=== PATIENT | female | born 1990 | race Native Hawaiian/Other Pacific Islander ===

== ENCOUNTER 2022-04-30 10:49 | Outpatient (REF) | payer BC, SELFPAY ==
--- NOTE | 2022-04-30 08:45 | PAPFT_PTH ---
PATIENT: Cande Spaulding LOC: [facility] U#:[id number] AGE/SX: 32/F ROOM: RE04/30/[address]: Zeinab Yates NP : 1990 BED: DIS: 04/30/2022 SPEC #: [id number] RECD: 04/30/22 12:39 STATUS: KATE REQ #: [id number] MONSE: 04/30/22 08:[address]: Zeinab Yates NP DEPT: [facility] Cytology RECD BY: Mildred Puga ENTERED: 04/30/22 12:40 SP TYPE: PAPFT OTHR DR: Orly Ojeda, DO Tissues: 1 - CX/ENDOCX FOR PAP SMEARS Procedures: PAP THIN PREP/UVM Screening HPV DNA PROBE Comments: [id number]
== END 2022-04-30 10:50 | disposition home or self-care (01) ==
LOC: LBN 10:49
PROVIDERS: PCP Student in an Organized Health Care Education/Training Program; Visit Provider Nurse Practitioner Women's Health
DX: Z12.4 Encounter for screening for malignant neoplasm of cervix (principal); Z11.51 Encounter for screening for human papillomavirus (HPV)
CPT/HCPCS: 88142; 87624

== ENCOUNTER 2022-05-11 19:58 | Outpatient (CLI) | payer BC, SELFPAY ==
[2022-05-11 15:54] LABS: HCT 41.2 % (36.0-46.0); HGB 14.3 g/dL (11.2-15.7); MCH 30.2 pg (27.0-33.0); MCHC 34.7 % (32.0-36.0); MCV 87 fL (80-95); MPV 7.8 fL (8.0-11.0); Platelet Count 315 10^3/uL (130-400); RBC 4.73 10^6/uL (3.93-5.22); RDW-SD 41.5 fL; WBC 9.45 10^3/uL (4.4-10.8)
[2022-05-11 17:02] LABS: ALT 20 U/L (14-59); AST 15 U/L (15-37); Albumin 3.9 g/dL (3.4-5.0); Alkaline Phosphatase 57 U/L (46-116); BUN 11 mg/dL (7-18); Bilirubin, Total 0.3 mg/dL (0.2-1.0); CREATININE 0.8 mg/dL (0.55-1.02); Calcium 9.1 mg/dL (8.5-10.1); Calculated LDL 118 mg/dL (<100); Chloride 102 mmol/L (98-107); Cholesterol 188 mg/dL (<200); Estimated GFR 100.96 (mL/min/1.73m2); Glucose 115 mg/dL (74-106); HCG Quant, Pregnancy 16 mIU/mL (1-3); HDL Cholesterol 53 mg/dL (40-60); Potassium 3.7 mmol/L (3.5-5.1); Sodium 136 mmol/L (136-145); TSH (W/Ref FT4) 1.44 uIU/mL (0.36-3.74); Total Protein 8.3 g/dL (6.4-8.2); Triglyceride 87 mg/dL (<150)
== END 2022-05-11 19:59 | disposition home or self-care (01) ==
LOC: LBO 19:59
PROVIDERS: PCP Student in an Organized Health Care Education/Training Program; Visit Provider Advanced Practice Midwife
DX: R00.0 Tachycardia, unspecified; E86.0 Dehydration; Z86.79 Personal history of other diseases of the circulatory system; Z91.89 Other specified personal risk factors, not elsewhere classified; Z13.220 Encounter for screening for lipoid disorders; N92.6 Irregular menstruation, unspecified; O20.0 Threatened abortion
CPT/HCPCS: 36415; 80053; 80061; 85027; 84443; 84702

== ENCOUNTER 2022-09-04 13:21 | Outpatient (REF) | payer BC, SELFPAY ==
[2022-09-05 13:24] LABS: Chlamydia Result Negative (Negative); GC Result Negative (Negative)
== END 2022-09-04 13:22 | disposition home or self-care (01) ==
LOC: LBN 13:21
PROVIDERS: PCP Student in an Organized Health Care Education/Training Program; Visit Provider Advanced Practice Midwife
DX: O26.891 Other specified pregnancy related conditions, first trimester (principal); N89.8 Other specified noninflammatory disorders of vagina; R30.0 Dysuria; Z3A.10 10 weeks gestation of pregnancy
CPT/HCPCS: 87491; 87591; 87086; 87480; 87510; 87660

== ENCOUNTER 2022-09-06 22:10 | Emergency (ER) | payer BC, SELFPAY ==
[2022-09-06 22:29] VITALS: BP 151/96; PULSE 91; RESP 16; TEMP 37.2; O2SAT 99
[2022-09-06 22:58] LABS: Bilirubin Negative (Negative); Blood Moderate (Negative); Clarity Clear (Clear); Glucose Negative (Negative); Ketones Trace mg/dL (Negative); Leukocyte Esterase Small (Negative); Nitrite Negative (Negative); Urobilinogen 0.2 EU/dL (Up TO 0.2)
--- NOTE | 2022-09-06 23:00 | ED.GENADUL_ITS ---
Discharge Plan Disposition Patient Disposition: Home Condition: Stable Discharge Details Clinical Impression: Vaginal bleeding in patient at less than 20 weeks gestation, Hypertension during in first trimester Primary Care Provider: Orly Ojeda ED Provider: Juliana Dill Home Meds and New Rx's Prescriptions: Continued albuterol sulfate [ProAir HFA] 90 mcg/actuation HFA aerosol inhaler 2 puff inhalation Q6H PRN (Reason: shortness of breath or wheezing) Qty: 8.5 0RF Rx Instructions: Substitutions or generic OK; dispense as best filled per insurance... PNV,calcium 57-qfzp-hkvle acid 27 mg iron- 1 mg tablet 1 tab PO DAILY Qty: 90 8RF Rx Instructions: give with food (meal/snack) Zyrtec 10 mg capsule 10 mg PO DAILY PRN acetaminophen [Tylenol Extra Strength] 500 mg tablet 500 mg PO Q6H PRN No Action labetalol 100 mg tablet 100 mg PO BID Qty: 60 0RF Discharge Instructions Instructions: Hypertension (ED), First Trimester (ED) Additional Instructions: Your hormone test and ultrasound today are very reassuring. Your blood pressure was elevated in the emergency department today. It is recommended that you call women's wellness in the morning to schedule an appointment for recheck of your blood pressure tomorrow. Drink plenty of fluids and get plenty of rest. Return immediately to the emergency department if you develop any worsening or new concerning symptoms. Discharge Data Discharge Date/Time-TO BE ENTERED AT DEPARTURE: 09/07/22 00:42 Discharge Physician: Juliana Dill Medical Decision Making 32-year-old female G3, L1 at approximate 11 weeks presents for concern for passing tissue in the toilet this evening. Denies any new abdominal pain or vaginal bleeding. Her blood pressure is elevated on arrival at 151/96. She appears comfortable and nontoxic. Her abdomen is soft and nontender. Bedside transabdominal ultrasound reveals an active live fetus with heart rate of approximately 158. Screening labs obtained on arrival and note normal white blood cell count. She does have a bicarb of 18 and anion gap that is minimally elevated at 12.2 but remainder of her labs are unremarkable. [place] [address]. Her urinalysis does note moderate blood and trace protein but no findings consistent with a urinary tract infection and urine culture not sent. Case discussed with head loft worker Sherron Teran. As patient has reassuring labs and a reassuring bedside ultrasound, she does not think there is an indication for repeat beta quantitative test in 48 hours. Recommends follow-up with women's wellness in the office tomorrow for recheck of her blood pressure. Her blood pressure prior to discharge is much improved at 134/87. Usual and customary return precautions given prior to discharge. Medical Records Medical records reviewed: Yes I reviewed the patient's medical records. Lab Data Lab results reviewed: Yes I reviewed the patient's lab results. Labs: Laboratory Tests Range/Units 09/06/22 09/06/22 09/06/22 02:50 23:00 23:00 WBC (4.4-10.8) 10^3/uL 10.08 RBC (3.93-5.22) 10^6/uL 4.43 Hgb (11.2-15.7) g/dL 13.4 Hct (36.0-46.0) % 39.0 MCV (80-95) fL 88 MCH (27.0-33.0) pg 30.2 MCHC (32.0-36.0) % 34.4 RDW (11.7-14.6) % 13.0 Plt Count (130-400) 10^3/uL 289 MPV (8.0-11.0) fL 7.8 L Immature Gran % 0.6 Neutrophils % 61.9 Lymphocytes % 29.4 Monocytes % 4.5 Eosinophils % 3.2 Basophils % 0.4 Nucleated RBC % (0.0-0.3) % 0.0 Absolute Neutrophils (1.2-6.7) 10^3/uL 6.25 Absolute Lymphocytes (1.2-3.4) 10^3/uL 2.96 Absolute Monocytes (0.1-0.8) 10^3/uL 0.45 Absolute Eosinophils (0.0-0.7) 10^3/uL 0.32 Absolute Basophils (0.0-0.2) 10^3/uL 0.04 Sodium (136-145) mmol/L 134 L Potassium (3.5-5.1) mmol/L 3.7 Chloride (98-107) mmol/L 103 Carbon Dioxide (21.0-32.0) mmol/L 18.8 L Anion Gap (3-11) mmol/L 12.2 H BUN (7-18) mg/dL 8 Creatinine (0.55-1.02) mg/dL 0.7 Est GFR (CKD-EPI 2020) (mL/min/1.73m2) 118.51 Glucose (74-106) mg/dL 97 Calcium (8.5-10.1) mg/dL 9.2 Total Bilirubin (0.2-1.0) mg/dL 0.3 AST (15-37) U/L 21 ALT (14-59) U/L 16 Alkaline Phosphatase (46-116) U/L 48 Total Protein (6.4-8.2) g/dL 7.5 Albumin (3.4-5.0) g/dL 3.5 Lipase (73-393) U/L 27 Beta HCG, Quant (1-3) mIU/mL 54357 H Urine Color (Yellow) Yellow Urine Clarity (Clear) Clear Urine pH (5-8) 6.0 Ur Specific [place] (1.005-1.025) 1.020 Urine Protein (Negative) mg/dL Trace H Urine Ketones (Negative) mg/dL Trace H Urine Blood (Negative) Moderate H Urine Nitrite (Negative) Negative Urine Bilirubin (Negative) Negative Urine Urobilinogen (Up TO 0.2) EU/dL 0.2 Ur Leukocyte Esterase (Negative) Small H Urine RBC (0-2) HPF 5-10 H Urine WBC (0-5) HPF 3-5 Ur Epithelial Cells (Negative) HPF Many Urine Crystals (Negative) HPF Negative Urine Bacteria (Negative) HPF Few Urine Casts (Negative) LPF Negative Urine Mucus (Negative) Negative Urine Other (Negative) Few Renal Ur Culture Indicated? No Urine Glucose (Negative) mg/dL Negative Patient ABO/Rh Range/Units 09/06/22 23:00 WBC (4.4-10.8) 10^3/uL RBC (3.93-5.22) 10^6/uL Hgb (11.2-15.7) g/dL Hct (36.0-46.0) % MCV (80-95) fL MCH (27.0-33.0) pg MCHC (32.0-36.0) % RDW (11.7-14.6) % Plt Count (130-400) 10^3/uL MPV (8.0-11.0) fL Immature Gran % Neutrophils % Lymphocytes % Monocytes % Eosinophils % Basophils % Nucleated RBC % (0.0-0.3) % Absolute Neutrophils (1.2-6.7) 10^3/uL Absolute Lymphocytes (1.2-3.4) 10^3/uL Absolute Monocytes (0.1-0.8) 10^3/uL Absolute Eosinophils (0.0-0.7) 10^3/uL Absolute Basophils (0.0-0.2) 10^3/uL Sodium (136-145) mmol/L Potassium (3.5-5.1) mmol/L Chloride (98-107) mmol/L Carbon Dioxide (21.0-32.0) mmol/L Anion Gap (3-11) mmol/L BUN (7-18) mg/dL Creatinine (0.55-1.02) mg/dL Est GFR (CKD-EPI 2020) (mL/min/1.73m2) Glucose (74-106) mg/dL Calcium (8.5-10.1) mg/dL Total Bilirubin (0.2-1.0) mg/dL AST (15-37) U/L ALT (14-59) U/L Alkaline Phosphatase (46-116) U/L Total Protein (6.4-8.2) g/dL Albumin (3.4-5.0) g/dL Lipase (73-393) U/L Beta HCG, Quant (1-3) mIU/mL Urine Color (Yellow) Urine Clarity (Clear) Urine pH (5-8) Ur Specific [place] (1.005-1.025) Urine Protein (Negative) mg/dL Urine Ketones (Negative) mg/dL Urine Blood (Negative) Urine Nitrite (Negative) Urine Bilirubin (Negative) Urine Urobilinogen (Up TO 0.2) EU/dL Ur Leukocyte Esterase (Negative) Urine RBC (0-2) HPF Urine WBC (0-5) HPF Ur Epithelial Cells (Negative) HPF Urine Crystals (Negative) HPF Urine Bacteria (Negative) HPF Urine Casts (Negative) LPF Urine Mucus (Negative) Urine Other (Negative) Ur Culture Indicated? Urine Glucose (Negative) mg/dL Patient ABO/Rh O Positive HPI General Mode of arrival: ambulatory . Date/Time Provider Initiated Documentation: 09/06/22 22:10 . Limitations to Documentation: no limitations . Information obtained by: patient . HPI Narrative: Patient is a 32-year-old female A1 L1 at approximately 11 weeks presents for concern for passing tissue in the toilet tonight. Patient states she was urinating when she stood up and wiped and noticed an approximate 2 x 2 centimeter piece of red and pink tissue in the toilet. Patient states there was no bleeding or tissue on the toilet paper. She states she has occasional abdominal cramping and lower back pain but states this is no worse than usual. She denies any other vaginal bleeding, fever, nausea, vomiting. Patient states she has a history of a miscarriage at approximately 5 weeks in March 2022. Related Data Home Medications Medication Instructions Recorded Confirmed albuterol sulfate 90 mcg/actuation 2 puff inhalation Q6H PRN 10/23/21 09/07/22 aerosol inhaler (ProAir HFA) shortness of breath or wheezing #8.5 grams acetaminophen 500 mg tablet 500 mg PO Q6H PRN 04/09/22 09/07/22 (Tylenol Extra Strength) cetirizine 10 mg capsule (Zyrtec) 10 mg PO DAILY PRN 04/09/22 09/07/22 vitamin with calcium 1 tab PO DAILY #90 tabs 07/19/22 09/07/22 no.72-iron 27 mg-folic acid 1 mg tablet labetalol 100 mg tablet 100 mg PO BID #60 tabs 09/07/22 09/07/22 Previous Rx's Medication Instructions Recorded albuterol sulfate 90 mcg/actuation 2 puff inhalation Q6H PRN 10/23/21 aerosol inhaler (ProAir HFA) shortness of breath or wheezing #8.5 grams vitamin with calcium 1 tab PO DAILY #90 tabs 07/19/22 no.72-iron 27 mg-folic acid 1 mg tablet labetalol 100 mg tablet 100 mg PO BID #60 tabs 09/07/22 Allergies Allergy/AdvReac Type Severity Reaction Status Date / Time Penicillins Allergy Verified 09/07/22 16:33 Sulfa (Sulfonamide Allergy Verified 09/07/22 16:33 Antibiotics) General Stated 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: 3 Review of Systems All systems reviewed & are unremarkable except as noted in HPI and below Constitutional Constitutional: Reports as per HPI, Denies chills and Denies fever(s) Eyes Eyes: Denies blurry vision ENT Ears, Nose, Mouth, and Throat: Denies dizziness, Denies sore throat and Denies throat swelling Cardiovascular Cardiovascular: Denies chest pain and Denies dyspnea Respiratory Respiratory: Denies cough and Denies dyspnea Gastrointestinal Gastrointestinal: Denies abdominal pain, Denies diarrhea and Denies vomiting Genitourinary Genitourinary: Denies hematuria and Denies dysuria Musculoskeletal Musculoskeletal: Denies back pain and Denies numbness Integumentary/Breasts Skin/Breast: Denies lesions and Denies rash Neurologic Neurologic: Denies dizziness, Denies localized weakness and Denies numbness Allergic/Immunologic Allergic/Immunologic: Denies throat swelling PFSH All Active Problems (Updated 09/07/22 @ 00:22 by Juliana Dill DO) Vaginal bleeding in patient at less than 20 weeks gestation (Acute) Hypertension during in first trimester (Acute) Chronic hypertension (Acute) Dysuria during in first trimester (Acute) History of gestational diabetes mellitus (Acute) Body mass index [BMI] 37.0-37.9, adult (Acute) (Acute) Asthma (Chronic) Mild, Hx Albuterol use as child, with cold weather. New to cold weather, considering PFT/Pulm PRN. Medical History (Updated 09/07/22 @ 00:22 by Juliana Dill DO) At risk for diabetes mellitus 2' gestational diabetes, 2019 (Vag delivery February 2020) Family history of ovarian cancer Maternal Grandmother. Mo NEG (and has had regular mammograms). Personal Hx bc pills. [ ] consider earlier baseline mammo History of gestational hypertension Hx of Healthy , but high BP noted (no Rx) and gestational DM (+). Vag delivery (induced), March 07, 2020. Miscarriage, threatened, early Missed menses Missed menses Tachycardia Family History Maternal Grandmother Cancer Ovarian Mother Hypertension Social History Smoking/Tobacco Use Status: Never Second Hand Exposure: No Smoking risk assessment performed?: Yes Alcohol Intake: current Alcohol Intake frequency: a few times a month Drug use: Never Substance use type: does not use Adopted: No Caregiver/Support person: No Foster care: No Household members: spouse, family and children Housing: house Number of Children: 1 number of grandchildren: 0 Communication Needs: None Education Level: college Details: Bachelor's Degree Do you need help understanding health information?: Rarely current occupation: [employer] Pets and animals: Yes (2) Pets and animals: dog(s) Sexually active: Yes Do you think of yourself as: straight/heterosexual Current gender identity: female What is your relationship status?: How often do you talk on the phone with friends or family?: three or more times per week How often do you get together with friends or relatives?: once per week Do you belong to any clubs or organized social groups?: no Panel score (0-1 are the most socially isolated patients): 2 What type of physical activity do you participate in: walking Duration: 15-30 minutes/day Frequency: 3-4 times per week Martha/Confucianist: None Special martha needs: No Seatbelt use: always Helmet use: Yes Helmet use: always Drive intox or ride w/intox transfer driver: No Do you feel safe at home: Yes Do you feel safe in your relationship?: Yes Female Reproductive History Menstrual control method: none History History 3 Para 1 Hx # Term Pregnancies 1 Multiple births 0 Hx # Pregnancies 0 Ectopic pregnancies 0 AB induced 0 Hx Number of Living Children 1 AB spontaneous 1 Past Pregnancies Del. Date GA/Weeks # Preg Succ Route Wgt Sex Labor Lgth Anesth esia Location [facility] 03/07/22 39 No Yes vaginal 3175.147 g Male 12 h [facility] Delivery Date: 03/07/22 Last Updated by: Sherron Teran CNM gHTN and GDM diet controlled, IOL at 39 wks, K[place]ash Exam Const General: cooperative, healthy appearing and no acute distress Orientation: alert, awake and oriented x3 HENMT Head: normal to inspection Face and sinus: normal facial exam Eyes General: appearance normal, both eyes and all related structures Pupils: PERRL EOM: EOM intact bilaterally Neck Neck: normal visual inspection and No submandibular swelling Lymphatic: no lymphadenopathy noted Chest Chest: normal inspection of the chest and no tenderness Resp Effort & Inspection: normal respiratory effort and able to speak in complete sentences Auscultation: clear to auscultation bilaterally Cardio Rate: regular rate Rhythm: regular rhythm GI Inspection: normal to inspection and obesity Palpation: soft, not firm, not rigid and nontender Auscultation: hypoactive bowel sounds Skin General skin exam: no rashes or lesions noted Neuro General: patient alert, patient awake and patient oriented x3 Cognition: normal cognition Speech: speech normal Motor: muscle tone normal throughout Sensory Exam: no sensory deficits noted Extrem General: normal to inspection, full ROM, capillary refill normal, no calf tenderness bilaterally and no edema Psych Appearance: grossly normal Mental Status: mental status grossly normal Speech and Movement: speech and movement normal Affect: normal affect Course Vital Signs Vital signs: Vital Signs Temperature 99.0 F 09/06/22 22:29 Pulse 91 H 09/06/22 22:29 Respiratory Rate 16 09/06/22 22:29 Blood Pressure 151/96 H 09/06/22 22:29 Pulse Oximetry 99 09/06/22 22:29 Temperature 99.0 F 09/06/22 22:29 Temperature Source Temporal Artery Scan 09/06/22 22:29 Pulse 91 H 09/06/22 22:29 Respiratory Rate 16 09/06/22 22:29 Respiratory Effort 09/06/22 22:34 Blood Pressure 151/96 H 09/06/22 22:29 Pulse Oximetry 99 09/06/22 22:29 Oxygen Delivery Method Room Air 09/06/22 22:29 Oxygen Flow Rate 0 09/06/22 22:29 Lab/Test Results Lab/Test Results: Laboratory Tests Range/Units 09/06/22 02:50 Urine Color (Yellow) Yellow Urine Clarity (Clear) Clear Urine pH (5-8) 6.0 Ur Specific [place] (1.005-1.025) 1.020 Urine Protein (Negative) mg/dL Trace H Urine Ketones (Negative) mg/dL Trace H Urine Blood (Negative) Moderate H Urine Nitrite (Negative) Negative Urine Bilirubin (Negative) Negative Urine Urobilinogen (Up TO 0.2) EU/dL 0.2 Ur Leukocyte Esterase (Negative) Small H Urine Glucose (Negative) mg/dL Negative
[2022-09-06 23:06] LABS: Abs Immature Grans 0.06 10^3/uL (0.0-0.06); Absolute Basophil Count 0.04 10^3/uL (0.0-0.2); Absolute Eosinophil Count 0.32 10^3/uL (0.0-0.7); Absolute Lymphocyte Count 2.96 10^3/uL (1.2-3.4); Absolute Monocyte Count 0.45 10^3/uL (0.1-0.8); Absolute Neutrophil Count 6.25 10^3/uL (1.2-6.7); Basophils % 0.4; Eosinophils % 3.2; HGB 13.4 g/dL (11.2-15.7); Immature Grans % 0.6; Lymphocytes % 29.4; MCH 30.2 pg (27.0-33.0); MCHC 34.4 % (32.0-36.0); MCV 88 fL (80-95); MPV 7.8 fL (8.0-11.0); Monocytes % 4.5; Neutrophils % 61.9; Platelet Count 289 10^3/uL (130-400); RBC 4.43 10^6/uL (3.93-5.22); RDW-SD 42.1 fL; WBC 10.08 10^3/uL (4.4-10.8)
[2022-09-06 23:07] LABS: Epithelial Cells Many HPF (Negative); Other Cells Few Renal (Negative)
[2022-09-06 23:08] LABS: Bacteria Few HPF (Negative); Casts Negative LPF (Negative); Crystals Negative HPF (Negative); Mucus Negative (Negative)
[2022-09-06 23:27] LABS: Lipase 27 U/L (73-393)
[2022-09-06 23:52] LABS: ALT 16 U/L (14-59); AST 21 U/L (15-37); Albumin 3.5 g/dL (3.4-5.0); Alkaline Phosphatase 48 U/L (46-116); Anion Gap 12.2 mmol/L (3-11); BUN 8 mg/dL (7-18); Bilirubin, Total 0.3 mg/dL (0.2-1.0); CO2 18.8 mmol/L (21.0-32.0); CREATININE 0.7 mg/dL (0.55-1.02); Calcium 9.2 mg/dL (8.5-10.1); Chloride 103 mmol/L (98-107); Estimated GFR 118.51 (mL/min/1.73m2); Glucose 97 mg/dL (74-106); Potassium 3.7 mmol/L (3.5-5.1); Sodium 134 mmol/L (136-145); Total Protein 7.5 g/dL (6.4-8.2)
[2022-09-07 00:40] VITALS: BP 134/87; PULSE 80; RESP 20; TEMP 36.7; O2SAT 100
[2022-09-07 07:35] LABS: C & S Indicated? No/Sq. Contamination
== END 2022-09-07 00:42 | disposition home or self-care (01) ==
PROVIDERS: Emergency Provider Physician Assistant; PCP Student in an Organized Health Care Education/Training Program
DX: O20.9 Hemorrhage in early pregnancy, unspecified (principal); O13.1 Gestational [pregnancy-induced] hypertension without significant proteinuria, first trimester; Z3A.11 11 weeks gestation of pregnancy; O28.8 Other abnormal findings on antenatal screening of mother
CPT/HCPCS: 80053; 83690; 86900; 86901; 99283; 81003; 81015; 84702; 85025

== ENCOUNTER 2022-09-10 02:50 | Outpatient (CLI) | payer BC, SELFPAY ==
[2022-09-10 10:24] LABS: Panorama Kit Sent via Fed Ex
[2022-09-10 10:58] LABS: Glucose,1 Hr (Glucola) 140 mg/dL (80-140)
[2022-09-10 11:20] LABS: ALT 19 U/L (14-59); AST 16 U/L (15-37); Albumin 3.3 g/dL (3.4-5.0); Alkaline Phosphatase 42 U/L (46-116); BUN 5 mg/dL (7-18); Bilirubin, Total 0.3 mg/dL (0.2-1.0); CREATININE 0.7 mg/dL (0.55-1.02); Calcium 8.9 mg/dL (8.5-10.1); Chloride 104 mmol/L (98-107); Estimated GFR 118.51 (mL/min/1.73m2); Glucose 140 mg/dL (74-106); LDH 118 U/L (81-234); Potassium 3.3 mmol/L (3.5-5.1); Sodium 137 mmol/L (136-145); TSH (W/Ref FT4) 0.89 uIU/mL (0.36-3.74); Total Protein 7.5 g/dL (6.4-8.2); Uric Acid 3.6 mg/dL (2.6-6.0)
[2022-09-11 09:25] LABS: Hepatitis B Surface Ag Negative (Negative)
[2022-09-11 10:04] LABS: HIV-1/2 Ag & Ab Screen Negative (Negative)
[2022-09-11 10:19] LABS: Hepatitis C Ab w Rflx HCV PCR Negative (Negative)
[2022-09-11 11:19] LABS: Rubella IgG Ab (UVM) Positive (See Note); Varicella IgG Antibody Positive (See Note)
[2022-09-12 14:24] LABS: Syphilis IgG w/Reflex Nonreactive (Nonreactive)
[2022-09-15 01:22] LABS: Specimen WB Whole Blood
[2022-09-26 16:01] LABS: Result Summary NEGATIVE; Specimen WB Whole Blood
== END 2022-09-10 02:51 | disposition home or self-care (01) ==
LOC: LBO 02:50
PROVIDERS: Advanced Practice Midwife; PCP Student in an Organized Health Care Education/Training Program; Visit Provider Advanced Practice Midwife
DX: Z34.91 Encounter for supervision of normal pregnancy, unspecified, first trimester
CPT/HCPCS: 36415; 80053; 81220; 81222; 81329; 82950; 86787; 86803; 86850; 86900; 86901; 87340; 87389; 83615; 84443; 84550; 86762; 86780

== ENCOUNTER 2022-09-10 11:31 | Outpatient (REF) | payer BC, SELFPAY ==
[2022-09-10 10:31] LABS: Creatinine,24hr Ur 1.69 g/24hr (0.60-1.80); Creatinine,Urine 65.01 mg/dL; PROTEIN < 6.0 mg/dL (0.0-11.9); Total Volume 2600 ml
[2022-09-10 13:20] LABS: *AMPHETAMINES SCREEN URINE Negative (Negative); *BARBITURATES SCREEN URINE Negative (Negative); *BENZODIAZEPINES SCREEN URINE Negative (Negative); Cannabinoids THC Negative (Negative); Cocaine Screen,Urine Negative (Negative); METHADONE URINE SCREEN Negative (Negative); OPIATES URINE SCREEN Negative (Negative)
[2022-09-10 13:21] LABS: Tricyclic Antidepressants Negative (Negative)
[2022-09-14 11:36] LABS: Buprenorphine Negative ng/mL (Cutoff: 5.0); Norbuprenorphine Negative ng/mL (Cutoff: 2.5)
== END 2022-09-10 11:32 | disposition home or self-care (01) ==
LOC: LBN 11:31
PROVIDERS: Advanced Practice Midwife; PCP Student in an Organized Health Care Education/Training Program; Visit Provider Advanced Practice Midwife
DX: O13.1 Gestational [pregnancy-induced] hypertension without significant proteinuria, first trimester (principal); Z3A.11 11 weeks gestation of pregnancy
CPT/HCPCS: 80307; 80348; 81050; 82570; 84155; 87086

== ENCOUNTER 2022-09-21 02:04 | Outpatient (CLI) | payer BC, SELFPAY ==
[2022-09-21 10:30] LABS: Glucose 1 Hour 176 mg/dL
[2022-09-21 12:36] LABS: Glucose 3 Hour 105 mg/dL
== END 2022-09-21 02:05 | disposition home or self-care (01) ==
LOC: LBO 02:05
PROVIDERS: PCP Student in an Organized Health Care Education/Training Program; Visit Provider Advanced Practice Midwife
DX: Z34.91 Encounter for supervision of normal pregnancy, unspecified, first trimester (principal); Z86.32 Personal history of gestational diabetes
CPT/HCPCS: 82951

== ENCOUNTER 2022-09-27 11:48 | Outpatient (CLI) | payer BC, SELFPAY ==
[2022-09-27 13:45] LABS: Panorama Kit Sent via Fed Ex
== END 2022-09-27 11:49 | disposition home or self-care (01) ==
LOC: LBO 11:55
PROVIDERS: PCP Student in an Organized Health Care Education/Training Program; Visit Provider Advanced Practice Midwife
DX: Z34.81 Encounter for supervision of other normal pregnancy, first trimester (principal)
CPT/HCPCS: 36415

== ENCOUNTER 2022-11-27 16:16 | Emergency (ER) | payer BC, SELFPAY ==
--- NOTE | 2022-11-27 16:15 | RT.EKG_ITS ---
APPROVED REPORT Exam: Resting ECG Reason for Exam: dizziness Patient Location: E HR:81 bpm ECG Measurements Heart Rate 81 AXIS MO 139 P 10 QRSd 84 QRS 16 QT 369 T -8 QTc 429 Conclusion Sinus rhythm...normal P axis, V-rate 60- 99
[2022-11-27 16:24] VITALS: BP 135/87; PULSE 82; RESP 18; O2SAT 98
[2022-11-27 16:34] VITALS: RESP 18
--- NOTE | 2022-11-27 17:15 | ED.GENADUL_ITS ---
Discharge Plan Disposition Patient Disposition: Home Condition: Good Discharge Details Clinical Impression: Benign paroxysmal positional vertigo Primary Care Provider: Orly Ojeda ED Provider: Kylee Mcgee Home Meds and New Rx's Prescriptions: Continued albuterol sulfate [ProAir HFA] 90 mcg/actuation HFA aerosol inhaler 2 puff inhalation Q6H PRN (Reason: shortness of breath or wheezing) Qty: 8.5 0RF Rx Instructions: Substitutions or generic OK; dispense as best filled per insurance... PNV,calcium [id number] acid 27 mg iron- 1 mg tablet 1 tab PO DAILY Qty: 90 8RF Rx Instructions: give with food (meal/snack) Zyrtec 10 mg capsule 10 mg PO DAILY PRN acetaminophen [Tylenol Extra Strength] 500 mg tablet 500 mg PO Q6H PRN aspirin 81 mg tablet,delayed release (DR/EC) 81 mg PO DAILY Qty: 90 3RF Rx Instructions: 1 tab daily alternating with two tabs every other day labetalol 100 mg tablet See Rx Instructions .ROUTE .COMPLEX Qty: 60 0RF Dose Instruction: TAKE ONE TABLET BY MOUTH TWICE A DAY Rx Instructions: TAKE ONE TABLET BY MOUTH TWICE A DAY Discharge Instructions Instructions: Benign Paroxysmal Positional Vertigo (ED) Additional Instructions: Return home and rest. If the vertigo happens again then lie down, close your eyes, and rest for a few minutes. If it is persisting with associated vomiting please return to the emergency department for additional treatment. Return also for any hearing loss, ringing in the ears, neurologic deficits such as weakness or change in vision or speech, etc. check your blood pressure in the morning and call your OB to check in if it is still elevated. Your discharge blood pressure is 137/94. Discharge Data Discharge Date/Time-TO BE ENTERED AT DEPARTURE: 11/27/22 19:23 Medical Decision Making Patient had a short episode of vertigo which has completely resolved. I suspect this is likely benign paroxysmal positional vertigo. She had no hearing loss or tinnitus with this. She has no headache or other focal neurologic complaints. She said she was extremely anxious after the vertigo started and I suspect this interfered with her ability to properly express herself. She could not answer her for a very short period of time although was mouthing the answers and said that she knew what she wanted to say. This lasted a minute or 2 before all resolved. I discussed the case with Dr. Floyd from neurology. She did not think the patient was having a stroke and felt that she was safe to go home. I discussed this extensively with the patient and her mom and answered their questions about vertigo and what to do if it returns. Patient's blood pressure was mildly elevated in the ED and she promises to call her OB in the morning if it is not back to baseline. She states that it has been in the 120s when she takes it at home. ECG Data Attestation: I personally reviewed and interpreted this ECG (s) as follows: Interpretation: EEG group EKG: Normal sinus rhythm at 80, no ST-T changes, some artifact HPI General Date/Time Provider Initiated Documentation: 11/27/22 16:29 . HPI Narrative: This 32-year-old 3 para 1 at 22 weeks gestation female presents with a chief complaint of vertigo. Patient states that she works from home and was lying on the bed with her computer. She says she felt a little bit lightheaded and the room was spinning slightly. She stood up and this got much worse. She says her balance was a little bit off and she held onto the wall as she tried to walk to her . She says she has been very anxious during this because they lost their last child. She was feeling anxious and was initially unable to answer her 's questions so he called 911. She says she knew what she wanted to say and he said she was mouthing words but he could not hear her. After a minute or 2 the patient was able to answer questions slowly and appropriately and by the time EMS arrived she was back to baseline. There was no slurred speech. She has no headache or other focal neurologic deficits or complaints. She has had some hypertension with this and is on labetalol. She denies any head or neck injury recently or in the past. The patient is asymptomatic with no complaints at this time. Related Data Home Medications Medication Instructions Recorded Confirmed albuterol sulfate 90 mcg/actuation 2 puff inhalation Q6H PRN 10/23/21 11/28/22 aerosol inhaler (ProAir HFA) shortness of breath or wheezing #8.5 grams acetaminophen 500 mg tablet 500 mg PO Q6H PRN 08/29/22 04/19/23 (Tylenol Extra Strength) cetirizine 10 mg capsule (Zyrtec) 10 mg PO DAILY PRN 04/09/22 11/28/22 vitamin with calcium 1 tab PO DAILY #90 tabs 07/19/22 11/28/22 no.72-iron 27 mg-folic acid 1 mg tablet aspirin 81 mg tablet,delayed 81 mg PO DAILY #90 tabs 09/10/22 11/28/22 release labetalol 100 mg tablet See Rx Instructions .Route 11/06/22 11/28/22 .COMPLEX #60 tabs Previous Rx's Medication Instructions Recorded albuterol sulfate 90 mcg/actuation 2 puff inhalation Q6H PRN 10/23/21 aerosol inhaler (ProAir HFA) shortness of breath or wheezing #8.5 grams vitamin with calcium 1 tab PO DAILY #90 tabs 07/19/22 no.72-iron 27 mg-folic acid 1 mg tablet aspirin 81 mg tablet,delayed 81 mg PO DAILY #90 tabs 09/10/22 release labetalol 100 mg tablet See Rx Instructions .Route 11/06/22 .COMPLEX #60 tabs Allergies Allergy/AdvReac Type Severity Reaction Status Date / Time Sulfa (Sulfonamide Allergy Verified 11/28/22 14:14 Antibiotics) Penicillins AdvReac Mild Hives Verified 11/28/22 14:14 General Stated Complaint: Dizzy/Sync JOSEPHINE: 3 Review of Systems Constitutional Constitutional: Denies chills, Denies fever(s), Denies headache(s) and Denies weakness Eyes Eyes: Denies diplopia and Reports other (no redness) ENT Ears, Nose, Mouth, and Throat: Reports vertigo, Denies otalgia, Denies headache(s), Denies nasal congestion, Denies nasal discharge, Denies neck pain and Denies sore throat Cardiovascular Cardiovascular: Denies chest pain, Denies palpitations and Denies dyspnea Respiratory Respiratory: Denies cough and Denies dyspnea Gastrointestinal Gastrointestinal: Denies abdominal pain, Denies diarrhea, Denies nausea and Denies vomiting Genitourinary Genitourinary: Denies dysuria Musculoskeletal Musculoskeletal: Denies myalgias, Denies muscle weakness, Denies neck pain, Denies numbness and Reports other (edema) Integumentary/Breasts Skin/Breast: Denies change in pigmentation and Denies rash Neurologic Neurologic: Denies confusion, Reports vertigo, Denies headache(s), Denies numbness and Denies weakness Psychiatric Psychiatric: Denies confusion Endocrine Endocrine: Denies palpitations PFSH All Active Problems (Updated 11/27/22 @ 19:15 by Kylee Mcgee MD) Benign paroxysmal positional vertigo (Acute) Adverse reaction to penicillin (Acute) History of depression, currently (Acute) Chronic hypertension (Acute) History of gestational diabetes mellitus (Acute) Body mass index [BMI] 37.0-37.9, adult (Acute) (Acute) Asthma (Chronic) Mild, Hx Albuterol use as child, with cold weather. New to cold weather, considering PFT/Pulm PRN. Medical History At risk for diabetes mellitus 2' gestational diabetes, 2019 (Vag delivery February 2020) Dysuria during in first trimester Family history of ovarian cancer Maternal Grandmother. Mo NEG (and has had regular mammograms). Personal Hx bc pills. [ ] consider earlier baseline mammo History of gestational hypertension Hx of Healthy , but high BP noted (no Rx) and gestational DM (+). Vag delivery (induced), March 07, 2020. Hypertension during in first trimester Miscarriage, threatened, early Missed menses Missed menses Tachycardia Vaginal bleeding in patient at less than 20 weeks gestation Family History Maternal Grandmother Cancer Ovarian Mother Hypertension Social History Smoking/Tobacco Use Status: Never Second Hand Exposure: No Smoking risk assessment performed?: Yes Alcohol Intake: current Alcohol Intake frequency: a few times a month Drug use: Never Substance use type: does not use Details: does not drink ETOH during per patient Adopted: No Caregiver/Support person: No Foster care: No Household members: spouse, family and children Housing: house Number of Children: 1 number of grandchildren: 0 Communication Needs: None Education Level: college Details: Bachelor's Degree Do you need help understanding health information?: Rarely 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 [employer] Pets and animals: Yes (2) Pets and animals: dog(s) Sexually active: Yes Do you think of yourself as: straight/heterosexual Current gender identity: female What is your relationship status?: How often do you talk on the phone with friends or family?: three or more times per week How often do you get together with friends or relatives?: once per week Do you belong to any clubs or organized social groups?: no Panel score (0-1 are the most socially isolated patients): 2 What type of physical activity do you participate in: walking Duration: 15-30 minutes/day Frequency: 3-4 times per week Martha/Mu-Ism: None Special marhta needs: No Seatbelt use: always Helmet use: Yes Helmet use: always Drive intox or ride w/intox truck 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 Date GA/Weeks # Preg Succ Route Wgt Sex Labor Lgth Anesth esia Location [facility] 03/07/22 39 No Yes vaginal 3175.147 g Male [facility] h [facility] Delivery Date: 03/07/22 Last Updated by: Sherron Teran CNM gHTN and GDM diet controlled, IOL at 39 wks, Kailash Exam Const General: no acute distress, well developed, well groomed and not in acute distress Nutritional Appearance: well nourished Orientation: alert and oriented x3 HENMT Head: normocephalic and atraumatic Ears: external ears normal Mouth: oropharynx normal and moist mucous membranes Throat: posterior oropharynx normal Eyes Conjunctivae: conjunctivae normal Neck Neck: full ROM and supple Chest Chest: normal inspection of the chest Resp Effort & Inspection: normal respiratory effort Auscultation: clear to auscultation bilaterally Cardio Rate: regular rate Rhythm: regular rhythm Heart Sounds: no murmurs and no rubs GI Inspection: normal to inspection Palpation: soft, nontender and other (non distended) Auscultation: normal bowel sounds Skin General skin exam: no rashes or lesions noted and other (pink, warm, dry) Neuro General: patient alert, patient awake, patient oriented x3, moves all extremities, no focal motor deficits, CN's II-XI intact bilaterally, normal sensation to monofilament (Sensation intact throughout) and not confused Speech: speech normal Gait: normal gait Motor: muscle tone normal throughout, strength 5/5 throughout and other (RAMON) Sensory Exam: no sensory deficits noted Coordination: [id number] test normal and Romberg test normal Extrem General: normal to inspection, full ROM and pedal edema present Psych Mental Status: mental status grossly normal Speech and Movement: speech and movement normal Affect: normal affect Attitude: cooperative Thought Process: normal Insight: insight good Judgment: judgment good Course Vital Signs Vital signs: Vital Signs Pulse 82 11/27/22 16:24 Respiratory Rate 18 11/27/22 16:24 Blood Pressure 135/87 11/27/22 16:24 Pulse Oximetry 98 11/27/22 16:24 Pulse 82 11/27/22 16:24 Respiratory Rate 18 11/27/22 16:34 Respiratory Effort Normal 11/27/22 16:34 Respiratory Depth Normal 11/27/22 16:34 Respiratory Pattern Normal 11/27/22 16:34 Blood Pressure 135/87 11/27/22 16:24 Blood Pressure Position Sitting 11/27/22 16:24 Pulse Oximetry 98 11/27/22 16:24 Oxygen Delivery Method Room Air 11/27/22 16:24 Oxygen Flow Rate 0 11/27/22 16:24
[2022-11-27 19:16] VITALS: BP 137/94
[2022-11-27 19:22] VITALS: BP 137/94; PULSE 85; O2SAT 98
== END 2022-11-27 19:23 | disposition home or self-care (01) ==
PROVIDERS: Emergency Provider Emergency Medicine; PCP Student in an Organized Health Care Education/Training Program
DX: H81.10 Benign paroxysmal vertigo, unspecified ear (principal); O99.892 Other specified diseases and conditions complicating childbirth; O10.912 Unspecified pre-existing hypertension complicating pregnancy, second trimester; Z3A.22 22 weeks gestation of pregnancy; O09.292 Supervision of pregnancy with other poor reproductive or obstetric history, second trimester
CPT/HCPCS: 93005; 99283; 93010

== ENCOUNTER 2023-01-02 02:45 | Outpatient (CLI) | payer BC, SELFPAY ==
--- NOTE | 2023-01-02 06:30 | DI.US_ITS ---
Exam(s) US OB RASHID WEIGHT EXAM: US OB RASHID WEIGHT CLINICAL HISTORY: growth and RASHID due to HTN on medication,I10. TECHNIQUE: Transabdominal obstetrical ultrasound was performed. COMPARISON: US US OB 2-3 TRIMESTER from 11/09/2022 . FINDINGS: There is again noted a single viable intrauterine gestation with cardiac activity identified-13 1 bpm The fetus is presently in cephalic position . Amniotic fluid: There is a normal amount of amniotic fluid with an RASHID of 12.69cm. Placental location: The placenta is anterior grade 1,with no evidence of placenta previa. Dating parameters place this at approximately 28 weeks gestational age, implying DANIELLE of Mar ust 2022. BPD measures 28 weeks and 0 days HC measures 27 weeks and 4 days AC measures 28 weeks and 4 days FL measures 27 weeks and 4 days Estimated weight is 1178 gm-pounds 10 ounces Fetus is at the 47th percentile on the Hadlock scale. IMPRESSION:: Viable intrauterine gestation, as described above. DATA REPOSITORY:
== END 2023-01-02 03:05 ==
PROVIDERS: PCP Student in an Organized Health Care Education/Training Program; Visit Provider Advanced Practice Midwife
DX: I10 Essential (primary) hypertension (principal); Z34.90 Encounter for supervision of normal pregnancy, unspecified, unspecified trimester
CPT/HCPCS: 76816

== ENCOUNTER 2023-01-10 04:37 | Outpatient (CLI) | payer BC, SELFPAY ==
[2023-01-10 08:18] LABS: HCT 34.8 % (36.0-46.0); HGB 11.9 g/dL (11.2-15.7); MCH 30.8 pg (27.0-33.0); MCHC 34.2 % (32.0-36.0); MCV 90 fL (80-95); MPV 7.7 fL (8.0-11.0); Platelet Count 274 10^3/uL (130-400); RBC 3.86 10^6/uL (3.93-5.22); RDW 14.3 % (11.7-14.6); RDW-SD 46.6 fL; WBC 9.56 10^3/uL (4.4-10.8)
[2023-01-10 10:08] LABS: Glucose 1 Hour 149 mg/dL
[2023-01-10 12:12] LABS: Glucose 3 Hour 72 mg/dL
== END 2023-01-10 04:38 | disposition home or self-care (01) ==
LOC: LBO 04:37
PROVIDERS: Advanced Practice Midwife; PCP Student in an Organized Health Care Education/Training Program; Visit Provider Advanced Practice Midwife
DX: Z34.93 Encounter for supervision of normal pregnancy, unspecified, third trimester (principal); Z86.32 Personal history of gestational diabetes
CPT/HCPCS: 36415; 85027; 82951

== ENCOUNTER 2023-02-01 00:09 | Outpatient (CLI) | payer BC, SELFPAY ==
--- NOTE | 2023-02-01 07:15 | DI.US_ITS ---
Exam(s) US OB RASHID WEIGHT EXAM: US OB RASHID WEIGHT CLINICAL HISTORY: growth due to HTN on medication in , I10, Z34.90. TECHNIQUE: Transabdominal obstetrical ultrasound performed. COMPARISON: US US OB RASHID WEIGHT from 01/02/2023 FINDINGS: Number of fetuses: 1 position: CEPHALIC Placental location: ANTERIOR No evidence of previa. BIOMETRIC DATA: BPD: 7.87 cm, 31 weeks 4 days HC: 29.54 cm, 32 weeks 5 days AC: 28.85 cm, 32 weeks 6 days FL: 6.19 cm, 32 weeks 1 day EFW: 1986.7 g, 4 lb 6 oz, 50.7 % Composite Age: 32 weeks 2 days. There has been normal interval growth. DANIELLE: 03/27/2023 Heart Rate: 141 bpm Amniotic fluid index: 11.33 cm. Visually, amount of fluid is within normal limits. IMPRESSION: 1. Single live intrauterine gestation as above. 2. Estimated weight is 1987gms. This is the 51st percentile. 3. Amniotic fluid index is 11.3 cm. Visually within normal limits. DATA REPOSITORY:
== END 2023-02-01 00:29 ==
LOC: DI 00:09
PROVIDERS: PCP Student in an Organized Health Care Education/Training Program; Visit Provider Advanced Practice Midwife
DX: I10 Essential (primary) hypertension (principal); Z34.93 Encounter for supervision of normal pregnancy, unspecified, third trimester
CPT/HCPCS: 76816

== ENCOUNTER 2023-02-08 03:38 | Outpatient (CLI) | payer BC, SELFPAY ==
[2023-02-08 10:19] VITALS: BP 129/85; PULSE 94; TEMP 36.9
--- NOTE | 2023-02-08 11:02 | W.OBNST ---
Date of service: 02/08/23 Time of Service: 11:03 NST Evaluation Reason for NST Reasons for Nonstress Test: GESTATIONAL HYPERTENSION Gestational Age Gestational Age in Weeks and Days: 33 Weeks and 1Days Vital Signs Blood Pressure: 129/85 Pulse: 94 Temperature: 98.4 F NST Information Date on Monitor: 02/08/23 Time on Monitor: 10:20 Date off Monitor: 02/08/23 NST Interventions: PO Hydration NST Evaluation Patient States Movement: Present Variability: Moderate 6-25 bpm Accelerations: 15x15 Decelerations: None NST Results: Reactive Note Ultrasound Done: N/A. NST Note NST Reviewed and Verified by: Paula Tamayo
[2023-02-08 11:03] VITALS: BP 129/85; PULSE 94; TEMP 36.9
== END 2023-02-08 10:55 | disposition home or self-care (01) ==
LOC: BCD 03:40 → OBS 10:18
PROVIDERS: PCP Student in an Organized Health Care Education/Training Program; Visit Provider Advanced Practice Midwife
DX: O10.013 Pre-existing essential hypertension complicating pregnancy, third trimester (principal); Z3A.33 33 weeks gestation of pregnancy
CPT/HCPCS: 59025

== ENCOUNTER 2023-02-15 07:42 | Outpatient (CLI) | payer BC, SELFPAY ==
[2023-02-15 12:06] VITALS: BP 119/74; PULSE 87; TEMP 36.3
--- NOTE | 2023-02-15 12:42 | W.OBNST ---
Date of service: 02/15/23 Time of Service: 11:55 NST Evaluation Reason for NST Reasons for Nonstress Test: GESTATIONAL HYPERTENSION Gestational Age Gestational Age in Weeks and Days: 34 Weeks and 1Days Test and Monitor Explained Test/Monitor Explained: Test Explained, Monitor Explained and Patient Verbalized Understanding Vital Signs Blood Pressure: 119/74 Pulse: 87 Temperature: 97.3 F NST Information Date on Monitor: 02/15/23 Time on Monitor: 11:53 Date off Monitor: 02/15/23 Time off Monitor: 12:25 Total Time on Monitor: 32 NST Interventions: PO Hydration NST Evaluation Patient States Movement: Present FHR Baseline: 135 Variability: Moderate 6-25 bpm Accelerations: 15x15 and 10x10 Decelerations: None NST Results: Reactive Note Ultrasound Done: N/A. NST Note Note: NST is reactive and reassuring. Will return weekly. BASHIR NST Reviewed and Verified by: Sherron Teran
[2023-02-15 12:43] VITALS: BP 119/74; PULSE 87; TEMP 36.3
== END 2023-02-15 12:32 | disposition home or self-care (01) ==
LOC: BCD 07:43 → OBS 12:03
PROVIDERS: PCP Student in an Organized Health Care Education/Training Program; Visit Provider Advanced Practice Midwife
DX: O10.013 Pre-existing essential hypertension complicating pregnancy, third trimester (principal); Z3A.34 34 weeks gestation of pregnancy
CPT/HCPCS: 59025

== ENCOUNTER 2023-02-22 05:24 | Outpatient (CLI) | payer BC, SELFPAY ==
[2023-02-22 11:12] VITALS: BP 118/75; PULSE 94; TEMP 36.1
--- NOTE | 2023-02-22 12:19 | W.OBNST ---
Date of service: 02/22/23 Time of Service: 12:19 NST Evaluation Reason for NST Reasons for Nonstress Test: GESTATIONAL HYPERTENSION Gestational Age Gestational Age in Weeks and Days: 35 Weeks and 1Days Test and Monitor Explained Test/Monitor Explained: Test Explained, Monitor Explained and Patient Verbalized Understanding Vital Signs Blood Pressure: 118/75 Pulse: 94 Temperature: 97.0 F NST Information Date on Monitor: 02/22/23 Time on Monitor: 10:50 Date off Monitor: 02/22/23 Time off Monitor: 11:17 Total Time on Monitor: 27 NST Interventions: Reposition Patient NST Evaluation Patient States Movement: Present FHR Baseline: 135 Variability: Moderate 6-25 bpm Accelerations: 15x15 Decelerations: None NST Results: Reactive Note Ultrasound Done: N/A. NST Note Note: Weekly NST for hypertension. Weekly NST scheduled and IOL at 39 weeks. NST Reviewed and Verified by: Sherron Chilel
[2023-02-22 12:20] VITALS: BP 118/75; PULSE 94; TEMP 36.1
== END 2023-02-22 11:45 | disposition home or self-care (01) ==
LOC: BCD 05:35 → OBS 11:07
PROVIDERS: PCP Student in an Organized Health Care Education/Training Program; Visit Provider Advanced Practice Midwife
DX: O10.013 Pre-existing essential hypertension complicating pregnancy, third trimester (principal); Z3A.35 35 weeks gestation of pregnancy
CPT/HCPCS: 59025

== ENCOUNTER 2023-02-28 07:24 | Outpatient (CLI) | payer BC, SELFPAY ==
[2023-02-28 12:59] VITALS: BP 124/87; PULSE 109; TEMP 36.5
[2023-02-28 13:04] LABS: HCT 34.6 % (36.0-46.0); MCH 30.9 pg (27.0-33.0); MCHC 34.7 % (32.0-36.0); MCV 89 fL (80-95); MPV 7.8 fL (8.0-11.0); Platelet Count 253 10^3/uL (130-400); RBC 3.88 10^6/uL (3.93-5.22); RDW-SD 45.1 fL; WBC 9.35 10^3/uL (4.4-10.8)
--- NOTE | 2023-02-28 13:15 | W.OBNST ---
Date of service: 02/28/23 Time of Service: 13:15 NST Evaluation Reason for NST Reasons for Nonstress Test: GESTATIONAL HYPERTENSION Gestational Age Gestational Age in Weeks and Days: 36 Weeks and 0Days Test and Monitor Explained Test/Monitor Explained: Test Explained, Monitor Explained and Patient Verbalized Understanding Vital Signs Blood Pressure: 124/87 Pulse: 109 Temperature: 97.7 F Urine Results Urine Protein: Negative Urine Ketones: Negative Urine Glucose: Negative Urine Blood: Negative NST Information Date on Monitor: 02/28/23 Time on Monitor: 12:04 Date off Monitor: 02/28/23 Time off Monitor: 12:43 Total Time on Monitor: 39 NST Interventions: Other Contraction Frequency: Occasional NST Evaluation Patient States Movement: Present FHR Baseline: 135 Variability: Moderate 6-25 bpm Accelerations: 15x15 Decelerations: None NST Results: Reactive Note Ultrasound Done: N/A. NST Note Note: Weekly NST's, IOL on 03/21/23 NST Reviewed and Verified by: Paula Tamayo
[2023-02-28 13:16] VITALS: BP 124/87; PULSE 109; TEMP 36.5
[2023-02-28 13:52] LABS: *AMPHETAMINES SCREEN URINE Negative (Negative); *BARBITURATES SCREEN URINE Negative (Negative); *BENZODIAZEPINES SCREEN URINE Negative (Negative); Cannabinoids THC Negative (Negative); Cocaine Screen,Urine Negative (Negative); METHADONE URINE SCREEN Negative (Negative); OPIATES URINE SCREEN Negative (Negative)
[2023-02-28 13:53] LABS: Tricyclic Antidepressants Negative (Negative)
== END 2023-02-28 13:02 | disposition home or self-care (01) ==
LOC: BCD 07:27 → OBS 12:10
PROVIDERS: PCP Student in an Organized Health Care Education/Training Program; Visit Provider Advanced Practice Midwife
DX: O10.013 Pre-existing essential hypertension complicating pregnancy, third trimester (principal); Z3A.36 36 weeks gestation of pregnancy
CPT/HCPCS: 36415; 80307; 85027; 59025; 87081

== ENCOUNTER 2023-03-06 02:54 | Outpatient (CLI) | payer BC, SELFPAY ==
--- NOTE | 2023-03-06 06:00 | DI.US_ITS ---
Exam(s) US OB RASHID WEIGHT EXAM: US OB RASHID WEIGHT CLINICAL HISTORY: growth due to HTN on med in ,I10,z34.90. TECHNIQUE: Transabdominal obstetrical ultrasound performed. COMPARISON: US US OB RASHID WEIGHT from 02/01/2023 FINDINGS: Number of fetuses: 1 position: Cephalic Placental location: Grade 1 anterior placenta. No evidence of previa. BIOMETRIC DATA: BPD: 87 mm, 37 weeks 1 day HC: 337 mm, 38 weeks 5 days AC: 121 mm, 39 weeks 2 days FL: 73 mm, 37 weeks 3 days EFW: 3451 g, 88th percentile, Composite Age: 37 weeks 5 days DANIELLE: 03/22/2023 Heart Rate: 137 Amniotic fluid index: 8.1. Visually, amount of fluid is within normal limits. IMPRESSION: 1. Single live intrauterine gestation as above. 2. Estimated weight is 3451gms. This is the 88th percentile. 3. Amniotic fluid index is 8.1 cm. Visually within normal limits. DATA REPOSITORY:
== END 2023-03-06 03:14 ==
LOC: DI 02:54
PROVIDERS: PCP Student in an Organized Health Care Education/Training Program; Visit Provider Advanced Practice Midwife
DX: I10 Essential (primary) hypertension (principal); Z34.93 Encounter for supervision of normal pregnancy, unspecified, third trimester
CPT/HCPCS: 76816

== ENCOUNTER 2023-03-06 07:36 | Outpatient (CLI) | payer BC, SELFPAY ==
[2023-03-06 09:16] VITALS: BP 131/83; PULSE 92; TEMP 36.6
--- NOTE | 2023-03-06 10:34 | W.OBNST ---
Date of service: 03/06/23 Time of Service: 10:34 NST Evaluation Reason for NST Reasons for Nonstress Test: GDM-DIET CONTROLLED Gestational Age Gestational Age in Weeks and Days: 36 Weeks and 6Days Test and Monitor Explained Test/Monitor Explained: Test Explained, Monitor Explained and Patient Verbalized Understanding Vital Signs Blood Pressure: 131/83 Pulse: 92 Temperature: 97.9 F Urine Results Urine Protein: Negative Urine Ketones: Negative Urine Glucose: Negative Urine Blood: Negative NST Information Date on Monitor: 03/06/23 Time on Monitor: 08:28 Date off Monitor: 03/06/23 Time off Monitor: 09:04 Total Time on Monitor: 36 NST Interventions: Notify Provider and Other Contraction Frequency: Occasional NST Evaluation Patient States Movement: Present FHR Baseline: 135 Variability: Moderate 6-25 bpm Accelerations: 15x15 Decelerations: None NST Results: Reactive Note Ultrasound Done: N/A. NST Note Note: Cande is here for weekly NST for chronic hypertension. Reactive NST. BP 131/83 Return to office in 2 days for visit NST Reviewed and Verified by: Sherron Chilel
[2023-03-06 10:35] VITALS: BP 131/83; PULSE 92; TEMP 36.6
== END 2023-03-06 09:00 | disposition home or self-care (01) ==
LOC: BCD 07:36 → OBS 08:38
PROVIDERS: PCP Student in an Organized Health Care Education/Training Program; Visit Provider Advanced Practice Midwife
DX: O24.410 Gestational diabetes mellitus in pregnancy, diet controlled (principal); Z3A.36 36 weeks gestation of pregnancy
CPT/HCPCS: 59025

== ENCOUNTER 2023-03-08 12:02 | Outpatient (CLI) | payer BC, SELFPAY ==
[2023-03-08 12:09] VITALS: BP 116/81; PULSE 90; TEMP 36.7; O2SAT 90
[2023-03-08 12:27] VITALS: BP 112/76; PULSE 90
--- NOTE | 2023-03-08 13:42 | W.OBNST ---
Date of service: 03/08/23 Time of Service: 12:35 NST Evaluation Reason for NST Reasons for Nonstress Test: GESTATIONAL HYPERTENSION Gestational Age Gestational Age in Weeks and Days: 37 Weeks and 1Days Test and Monitor Explained Test/Monitor Explained: Test Explained and Monitor Explained Vital Signs Blood Pressure: 116/81 Pulse: 90 Temperature: 98.1 F NST Information Date on Monitor: 03/08/23 Time on Monitor: 12:06 Date off Monitor: 03/08/23 Time off Monitor: 12:37 Total Time on Monitor: 31 NST Interventions: PO Hydration NST Evaluation Patient States Movement: Present FHR Baseline: 125 Variability: Moderate 6-25 bpm Accelerations: 15x15 Decelerations: None NST Results: Reactive Note Ultrasound Done: N/A. NST Note Note: NST is reactive and reassuring. BP WNL NST Reviewed and Verified by: Sherron Teran
[2023-03-08 13:43] VITALS: BP 116/81; PULSE 90; TEMP 36.7
== END 2023-03-08 12:42 | disposition home or self-care (01) ==
LOC: BCD 12:03 → OBS 12:08
PROVIDERS: PCP Student in an Organized Health Care Education/Training Program; Visit Provider Advanced Practice Midwife
DX: O10.013 Pre-existing essential hypertension complicating pregnancy, third trimester (principal); Z3A.37 37 weeks gestation of pregnancy
CPT/HCPCS: 59025

== ENCOUNTER 2023-03-15 07:26 | Outpatient (CLI) | payer BC, SELFPAY ==
[2023-03-15 12:19] VITALS: BP 126/84; PULSE 87; TEMP 36.7
[2023-03-15 12:49] VITALS: BP 126/84; PULSE 87; TEMP 36.7
--- NOTE | 2023-03-15 12:56 | W.OBNST ---
Date of service: 03/15/23 Time of Service: 12:56 NST Evaluation Reason for NST Reasons for Nonstress Test: GESTATIONAL HYPERTENSION Gestational Age Gestational Age in Weeks and Days: 38 Weeks and 1Days Test and Monitor Explained Test/Monitor Explained: Test Explained, Monitor Explained and Patient Verbalized Understanding Vital Signs Blood Pressure: 126/84 Pulse: 87 Temperature: 98.1 F Urine Results Urine Protein: Negative Urine Ketones: Negative Urine Glucose: Negative Urine Blood: Negative NST Information Date on Monitor: 03/15/23 Time on Monitor: 12:03 Date off Monitor: 03/15/23 Time off Monitor: 12:24 Total Time on Monitor: 21 NST Interventions: PO Hydration NST Evaluation Patient States Movement: Present FHR Baseline: 125 Variability: Moderate 6-25 bpm Accelerations: 15x15 Decelerations: None NST Results: Reactive Note Ultrasound Done: N/A. NST Note Note: NST for chronic hypertension. Recative NST. IOL scheduled for 03/21 and procedure reviewed. NST Reviewed and Verified by: Sherron Chilel
[2023-03-15 12:57] VITALS: BP 126/84; PULSE 87; TEMP 36.7
== END 2023-03-15 12:35 | disposition home or self-care (01) ==
LOC: BCD 07:26 → OBS 11:04
PROVIDERS: PCP Student in an Organized Health Care Education/Training Program; Visit Provider Advanced Practice Midwife
DX: O10.013 Pre-existing essential hypertension complicating pregnancy, third trimester (principal); Z3A.38 38 weeks gestation of pregnancy
CPT/HCPCS: 59025

== ENCOUNTER 2023-03-21 08:39 | Outpatient (CLI) | payer BC, SELFPAY ==
[2023-03-21 09:31] VITALS: BP 123/84; PULSE 84; TEMP 36.4
--- NOTE | 2023-03-21 09:56 | W.OBNST ---
Date of service: 03/21/23 Time of Service: 09:56 NST Evaluation Reason for NST Reasons for Nonstress Test: CHRONIC HYPERTENSION Gestational Age Gestational Age in Weeks and Days: 39 Weeks and 0Days Test and Monitor Explained Test/Monitor Explained: Test Explained, Monitor Explained and Patient Verbalized Understanding Vital Signs Blood Pressure: 123/84 Pulse: 84 Temperature: 97.5 F Urine Results Urine Protein: Negative Urine Ketones: Negative Urine Glucose: Negative Urine Blood: Negative NST Information Date on Monitor: 03/21/23 Time on Monitor: 08:55 Date off Monitor: 03/21/23 Time off Monitor: 09:29 Total Time on Monitor: 34 NST Interventions: Notify Provider Contraction Frequency: Occasional NST Evaluation Patient States Movement: Present FHR Baseline: 135 Variability: Moderate 6-25 bpm Accelerations: 15x15 Decelerations: None NST Results: Reactive Note Ultrasound Done: N/A. NST Note Note: Pt will be at home awaiting notification that she may return to begin scheduled IOL NST Reviewed and Verified by: Paula Tamayo
[2023-03-21 09:57] VITALS: BP 123/84; PULSE 84; TEMP 36.4
== END 2023-03-21 09:33 | disposition home or self-care (01) ==
LOC: BCD 08:41 → OBS 08:49
PROVIDERS: PCP Student in an Organized Health Care Education/Training Program; Visit Provider Advanced Practice Midwife
DX: O10.013 Pre-existing essential hypertension complicating pregnancy, third trimester (principal); Z3A.39 39 weeks gestation of pregnancy
CPT/HCPCS: 59025

== ENCOUNTER 2023-03-23 22:28 | Inpatient (IN) | payer BC, SELFPAY ==
--- NOTE | 2023-03-23 22:42 | HPE_ITS ---
Date of service: 03/23/23 Time of Service: 22:43 Assessment and Plan Assessment and plan (1) Chronic hypertension: Status: Acute Assessment and plan: Well controlled with labetalol since 2nd trimester Took low dose ASA daily for risk reduction Baseline 120's over 80's throughout (2) Uterine contractions: Status: Acute Assessment and plan: A: 33 yo @ 39+2 wks Spontaneous onset of active labor Coping well with contrx, providing support Had scheduled IOL d/t cHTN for tomorrow GBS negative, nml glucose screening, intact membranes Mild risk for PPH d/t cHTN, EFW 500+gms >first baby P: Admit to BC, CBC, T&S, initiate IV access Pt 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 DANIELLE Calculator Estimated Delivery Date Method Current WG Current Estimate 03/28/23 Ultrasound #2 39w 2d Other Estimates 03/21/23 LMP (Certain) 40w 2d 04/01/23 Ultrasound #1 38w 5d History of Present Expected Delivery Route/Plan - CNM preferred, collab as needed FOB/ - Rehan Sy (2nd child) BB yes to circ IOL at 39-40 wks d/t HTN on meds, plans regional anesthesia Support for labor - Rehan soto Thuy Domingo (her Mom) GBS negative Specific Issues/Plan 1. BMI 37 and hx GDM; early glucola 140; 3 hr GTT F92/1h 176/2h 149/3h 105 1a. Repeat 3 hr GTT at 29 wks is nml x4; pt to check fasting x2/wk and prn 2. gHTN last ; start low dose ASA @ 12 wks 2a. CMP and 24 hr urine for baseline done 09/10/22- WNL 2b. Labetalol 100 mg twice daily started 09/07/22 2c. 32 week growth US - 51%ile and RASHID 11.3 2d. IOL planned at 39 weeks 03/21 2e. US at 36 weeks - 88%ile, RASHID 8.1 3. cfDNA, CF/SMA drawn 09/10, SMA neg, CF neg 3a. Insufficient cells on panorama specimen - desires redraw Low Risk 4. Records release for previous delivery record signed 09/04/22 ([place]) 5. Plan LC consult after 36 wks to review issues 6. Hx PPD, pt accepts referral to [facility], will monitor mood 7. Childhood hives reax to N, accepts referral to [facility] Allergy (appt February) 8. 11/27 had ED visit via EMS due to vertigo like episode; declines MRI 9. PT referral done for right wrist carpal tunnel pain 01/10/23 10/ Tdap given 02/08/23 Assessment: History Reviewed & Current Review of Systems Narrative: ROS completed and found to be noncontributory other then HPI. PFSH All Active Problems (Updated 03/23/23 @ 23:00 by Paula Tamayo) Uterine contractions (Acute) Carpal tunnel syndrome of right wrist (Acute) Adverse reaction to penicillin (Acute) History of depression, currently (Acute) Chronic hypertension (Acute) Body mass index [BMI] 37.0-37.9, adult (Acute) (Acute) Asthma (Chronic) Mild, Hx Albuterol use as child, with cold weather. New to cold weather, considering PFT/Pulm PRN. Medical History (Updated 03/23/23 @ 23:00 by Paula Tamayo) At risk for diabetes mellitus 2' gestational diabetes, 2019 (Vag delivery February 2020) Family history of ovarian cancer Maternal Grandmother. Mo NEG (and has had regular mammograms). Personal Hx bc pills. [ ] consider earlier baseline mammo History of gestational diabetes mellitus History of gestational hypertension Hx of Healthy , but high BP noted (no Rx) and gestational DM (+). Vag delivery (induced), March 07, 2020. Tachycardia Family History Maternal Grandmother Cancer Ovarian Mother Hypertension Social History Smoking/Tobacco Use Status: Never Second Hand Exposure: No Smoking risk assessment performed?: Yes Alcohol Intake: current Alcohol Intake frequency: a few times a month Drug use: Never Substance use type: does not use Details: does not drink ETOH during per patient Adopted: No Caregiver/Support person: No Foster care: No Household members: spouse, family and children Housing: house Number of Children: 1 number of grandchildren: 0 Communication Needs: None Education Level: college Details: Bachelor's Degree Do you need help understanding health information?: Rarely 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[employer] Pets and animals: Yes (2) Pets and animals: dog(s) Sexually active: Yes Do you think of yourself as: straight/heterosexual Current gender identity: female What is your relationship status?: How often do you talk on the phone with friends or family?: three or more times per week How often do you get together with friends or relatives?: once per week Do you belong to any clubs or organized social groups?: no Panel score (0-1 are the most socially isolated patients): 2 What type of physical activity do you participate in: walking Duration: 15-30 minutes/day Frequency: 3-4 times per week Martha/Jainism: None Special martha needs: No Seatbelt use: always Helmet use: Yes Helmet use: always Drive intox 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 Date GA/Weeks # Preg Succ Route Wgt Sex Labor Lgth Anesth esia Location [facility] 03/07/22 39 No Yes vaginal 7 lb Male 12 h [facility] Delivery Date: 03/07/22 Last Updated by: Sherron Teran CNM gHTN and GDM diet controlled, IOL at 39 wks, Kailash Meds Allergies and Home Medications Allergies Allergy/AdvReac Type Severity Reaction Status Date / Time Sulfa (Sulfonamide Allergy Verified 03/23/23 22:52 Antibiotics) Penicillins AdvReac Mild Hives Verified 03/23/23 22:52 Home Medications Medication Instructions Recorded Confirmed Type albuterol sulfate 90 mcg/actuation 2 puff inhalation Q6H PRN 10/23/21 03/23/23 Rx aerosol inhaler (ProAir HFA) shortness of breath or wheezing #8.5 grams acetaminophen 500 mg tablet 500 mg PO Q6H PRN 04/09/22 03/15/23 History (Tylenol Extra Strength) cetirizine 10 mg capsule (Zyrtec) 10 mg PO DAILY PRN 04/09/22 03/15/23 History vitamin with calcium 1 tab PO DAILY #90 tabs 07/19/22 03/23/23 Rx no.72-iron 27 mg-folic acid 1 mg tablet aspirin 81 mg tablet,delayed 81 mg PO DAILY #90 tabs 09/10/22 03/23/23 Rx release blood sugar diagnostic (FreeStyle #100 ea 01/10/23 03/15/23 Rx Lite Strips) blood-glucose meter (FreeStyle #1 ea 01/10/23 03/15/23 Rx Lite Meter kit) lancets 28 gauge (FreeStyle #100 ea 01/10/23 03/15/23 Rx Lancets) labetalol 100 mg tablet 100 mg PO BID #60 tabs 01/28/23 03/23/23 Rx Exam Physical Exam Vital Signs Reviewed: Yes Constitutional Constitutional: mild distress, obese and cooperative Detailed Labor and Delivery Exam Dilation: 6 Effacement (%): 90 station: -3 Position: ROP Cervix position: mid Consistency: soft Amniotic Membrane Status: Intact Contraction Frequency(min): 3-5 Contraction Intensity: Moderate Fetus A Heart Rate Baseline: 135 Monitor Accelerations: 15 X 15 Monitor Decelerations: None Variability: Moderate (6-25 BPM) Categories: Category I Est. Weight: 8 lb 6.041 oz Est. Weight: 3800 gms HEENT Exam HEENT Exam: Normal Neck Exam Neck Exam: Normal Chest/Brest/Axilla Exam Chest Exam: Normal Breast Exam Breast Exam: Not Done Respiratory Exam Respiratory Exam: Normal Cardiovascular Exam Cardiovascular Exam: Normal Abdominal Exam Abdominal Exam: Normal (Gravid, nontender) Rectal Exam Rectal Exam: Normal Exam Exam: Normal Extremities Exam Extremities Exam: Normal Back/Spine/Pelvis Exam Back Exam: Normal Pelvis Adequate: Yes (proven to 7 lb) Skin Exam Skin Exam: Normal Neurological Exam Neurological Exam: Normal Psychiatric Exam Psychiatric Exam: Normal Results Results Group Beta Strep: Negative Blood Type: O+ Rubella Status: Immune Varicella Immunity: Immune Risk Assessment Risk for Shoulder Dystocia Historical/Initial OB: POSITIVE FOR: Pre- BMI>30; NEGATIVE FOR: Pelvic Abnormality, Previous Shoulder Dystocia or Previous Macrosomia 36 Weeks: NEGATIVE FOR: Current Gestational DM, EFW>4500gms or Maternal Weight Gain>40lbs Increased Risk?: No Delivery Plan @ 36wks: Delivery Plan @ 40 wks: , IOL @ 39 wks Risk for Pre-Eclampsia Date Initiated/Initials: to start @ 12 wks, JK Yes, if one or more: POSTIVE FOR: Hx Pre-E/Gest HTN and Chronic HTN; NEGATIVE FOR: Multiple Gestation, Pre-gestational DM, Renal Disease, Systemic Lupus or APA Syndrome Yes, if 2 or more: POSITIVE FOR: BMI>30 and ethinicty; NEGATIVE FOR: Nulliparity, Age>= 35 yrs, >10yr btwn pregnancies, Mother/Sister w/ Pre-E or Previous IUGR Risk for Post- Hemorrhage Initial: NEGATIVE FOR: Multiple Gestation, Previous PPH, Known Clotting Deficiency, Grand Multiparity or Anticoagulation 36 Weeks: NEGATIVE FOR: Anemia, hgb<10, Low platelets(thrombocytopenia), Gestational HTN or Pre-E, Polyhydraminios or EFW>4500gms At Risk?: Yes (cHTN well controlled with oral medication) Counseled re: Active Management: Yes Risks Reviewed Risks Reviewed Upon Admission: Yes
[2023-03-23] MEDS: Normal Saline Flush 10 ML SYR IVP (23:00)
[2023-03-23 23:13] LABS: HCT 37.4 % (36.0-46.0); HGB 12.8 g/dL (11.2-15.7); MCH 30.3 pg (27.0-33.0); MCHC 34.2 % (32.0-36.0); MCV 89 fL (80-95); MPV 8.1 fL (8.0-11.0); Platelet Count 282 10^3/uL (130-400); RBC 4.22 10^6/uL (3.93-5.22); RDW 14.1 % (11.7-14.6); RDW-SD 45.6 fL; WBC 8.53 10^3/uL (4.4-10.8)
[2023-03-23 23:14] VITALS: BP 128/78; PULSE 82; RESP 18
[2023-03-23 23:20] VITALS: BP 128/78; PULSE 82; RESP 18
[2023-03-24] VITALS (10 sets, daily range): BP systolic 113–135; BP diastolic 68–81; PULSE 80–95; RESP 16–18; TEMP 36.6–36.8; O2SAT 97–98
[2023-03-24] MEDS: fentaNYL 100 MCG/2 ML VIAL 25 MCG IVP (00:47)
--- NOTE | 2023-03-24 00:51 | PGE_ITS ---
Date of service: 03/24/23 Time of Service: 00:51 Pelvic Exam Dilation: 8 (large soft BBOW palpable) Effacement (%): 100 station: -2 Position: ROP Contractions Monitor Mode: Palpation Contraction Frequency(min): q3-4 Contraction Duration(sec): 70-80 Intensity: Moderate/Strong Fetus A Monitor: Doppler Heart Rate Baseline: 140 FHR Rhythm: Regular Characteristics: Normal Decelerations: None Amniotic Membrane Status: Intact Assessment and Plan Assessment and plan (1) Uterine contractions: Status: Acute Assessment and plan: A: Active labor in multipara Pt coping well, verbalizes understanding of pain management options P: Fentanyl 25 mcg IVP Positioning to encourage rotation/descent Anticipate Objective Pulse Resp BP 82 18 128/78 03/23/23 23:20 03/23/23 23:14 03/23/23 23:20 Laboratory Results WBC 8.53 10^3/uL (4.4-10.8) 03/23/23 23: RBC 4.22 10^6/uL (3.93-5.22) 03/23/23 23:02 Hgb 12.8 g/dL (11.2-15.7) 03/23/23 23:02 Hct 37.4 % (36.0-46.0) 03/23/23 23:02 MCV 89 fL (80-95) 03/23/23 23:02 MCH 30.3 pg (27.0-33.0) 03/23/23 23:02 MCHC 34.2 % (32.0-36.0) 03/23/23 23:02 RDW 14.1 % (11.7-14.6) 03/23/23 23:02 Plt Count 282 10^3/uL (130-400) 03/23/23 23:02 MPV 8.1 fL (8.0-11.0) 03/23/23 23:02 Patient ABO/Rh O Positive 03/23/23 23:02 Antibody Screen NEGATIVE 03/23/23 23:02 Vital Signs Reviewed: Yes Objective Narrative Objective Narrative: ENVIRONMENTAL DIRECTOR notified unit 1 hr ago that emergent OR case in progress Likely that regional anesthesia will not be available for 2-3 hrs Discussed this w/pt, reviewed signs of transitional & 2nd stage labor At pt request will proceed with low dose fentanyl IVP Subjective Interval history since last seen: Contractions increasing in strength, pt feels shakey, has tried using nitrous without much relief, requests IV narcotic analgesia.
[2023-03-24] MEDS: Oxytocin/Normal Saline 30 UNIT/500 ML BAG 95 UNITS IV (02:20)
[2023-03-24] MEDS: Lidocaine 1% Multi-Dose 20 ML VIAL IJ (02:30)
--- NOTE | 2023-03-24 03:01 | W.OBDELIVERY ---
Date of service: 03/24/23 Time of Service: 03:01 OB Labor/ Delivery Information Baby A Delivery Delivery Method: Spontaneaous Presentation: Cephalic Cephalic Position: Vertex Vertex Position: Right Occipital Anterior Breech Position: N/A Cord Description-Baby A: 3 Vessels Amniotic Fluid: Clear Estimated Blood Loss: 300 Delivery Outcome: Liveborn Infant Transferred: Remains with Mother Note: Pt relaxed in RLP after receiving fentanyl 25 mcg via IV, rotated to LLP after 45 minutes and began to feel urges to push, SVA for rim of cvx, AROM for clear fluid, anterior lip reduced with maternal pushing effort to full dilation with vtx @ +3 station, FHT's per doptone 120-140 bpm during and after contractions. 2nd stage huddle completed, excellent maternal efforts in semi-fowlers position resulted in over attempted intact perineum, shoulders oblique and delivered with ease, vigorous male to mother's arms immediately. Pitocin bolus begun, cord clamped and cut by pt at 3 minutes, cord blood collected, Mustafa placenta delivered intact with 3VC. 2nd degree laceration repaired under local lidocaine injection with 3.0 Vicryl, fundus firm below umbilicus with minimal lochia, inspection revealed no other lacerations, rectal exam done for intact sphincter and mucosa. Strong family bonding observed, apgars 9/9, weight 3725 gms. Providers Nurse Electrical Appliance Servicer: Paula Tamayo Nurse: Jeannie Esquivel Nurse: Taylor Sorenson Labor/Delivery Information Number of Babies in Womb: 1 Steroids Given: None Reason Steroids Not Administered: N/A Group Beta Strep: Negative Antibiotics Administered: No Rubella Status: Immune Blood Type: O+ Varicella Immunity: Immune Medication in Delivery: pitocin bolus Maternal Complications: None Shoulder Dystocia: No Stages of Labor Onset of Labor Date: 03/23/23 Onset of Labor Time: 17:30 Complete Dilatation Date: 03/24/23 Complete Dilatation Time: 02:05 Labor - Stage 1 Duration: 8 hours and 35 minutes ROM Baby A: 03/24/23 ROM Baby A: 01:43 ROM Total Time- Baby A: [id number] Infant Delivery Date-Baby A: 03/24/23 Infant Delivery Time-Baby A: 02:15 Labor Stage 2 Duration: 10 minutes Placenta Delivery Date-Baby A: 08/13/23 Placenta Delivery Time-Baby A: 02:26 Labor-Stage 3 Duration: 11 minutes Total Length of Labor-Baby A: 8 hours and 45 minutes Placenta Cultured: No Placenta Status: Delivered Baby A Gender: Male Gestational Status: Term (39-41.6 wks) Gestational Age in Weeks/Days: 39 Weeks and 3 Days weight: 8 lb 3.396 oz Weight Comment: 3725 gms Score-1 Minute Interval(Baby A) Heart Rate-1 minute: 100 BPM or Greater Respiratory Effort- 1 minute: Spontaneous/Strong Cry Muscle Tone-1 minute: Active Movement Reflex Response-1 minute: Prompt Response Color-1 minute: Bluish Hands or Feet Total Score-1 minute: 9 Score-5 Minute Interval(Baby A) Heart Rate- 5 minute: 100 BPM or Greater Respiratory Effort-5 minute: Spontaneous/Strong Cry Muscle Tone-5 minute: Active Movement Reflex Response-5 minute: Prompt Response Color-5 minute: Bluish Hands or Feet Total Score- 5 minute: 9 Procedure Procedures: Cord Blood Collection Interventions Pain Management Interventions: Comfort Measures, Nitrous Oxide , tried to use it a few times and discontinued due to not being helpful , IV Analgesics , medication administered: Fentanyl 0.25 mcg IVP and Local anesthesia details: lidocaine injection for repair .
[2023-03-24] MEDS: Dibucaine 1% 28 GM TUBE TP (03:12)
[2023-03-24] MEDS: Hamamelis Leaf/Glycerin 100 EACH BOX PR (03:13)
[2023-03-24] MEDS: Ibuprofen 600 MG TAB PO ×2 (04:14→10:44)
[2023-03-24] MEDS: Labetalol 100 MG TAB PO ×2 (08:13→20:16)
[2023-03-24] MEDS: Docusate Sodium 100 MG CAP PO (20:16)
[2023-03-25 02:05] VITALS: BP 116/73; PULSE 85; RESP 18
[2023-03-25 07:13] VITALS: BP 119/83; PULSE 73; RESP 18; TEMP 36.7; O2SAT 99
[2023-03-25] MEDS: Labetalol 100 MG TAB PO (08:11)
[2023-03-25] MEDS: Docusate Sodium 100 MG CAP PO (08:11)
--- NOTE | 2023-03-25 10:01 | OBPPV_ITS ---
Date of service: 03/25/23 Time of Service: 10:01 Assessment and Plan Assessment and plan (1) Term delivered: Status: Acute Assessment and plan: A: nml PPD#1 Satisfied with experience well Desires discharge to home today P: Will discharge when baby is released Continue labetalol 100 mg PO BID Written instructions reviewed and given to pt F/up in 2 & 6 wks Declines BCM, considering vasectomy Subjective Subjective Patient comments: No complaints, Pain well controlled, Tolerating diet and Flatus present Patient's Mood: happy baby status: Doing well, Nursing well, Rooming in and Strong Bonding Ob served [place] feeding status: Exclusively breast feeding Exam Physical Exam Vital signs: Temp Pulse Resp BP Pulse Ox 98.1 F 73 18 119/83 99 03/25/23 07:13 03/25/23 07:13 03/25/23 07:13 03/25/23 07:13 03/25/23 07:13 Vital Signs Reviewed: Yes Constitutional Constitutional: no acute distress and cooperative HEENT Exam HEENT Exam: Normal Neck Exam Neck Exam: Normal Breast Exam Bilateral: Breast Exam: Normal and Soft Nipple Exam: Normal and Uninjured Respiratory Exam Respiratory Exam: Normal Cardiovascular Exam Cardiovascular Exam: Normal Abdominal Exam Abdomen: Other (soft, nontender) Fundal Exam Fundus: Below Umbilicus and Firm Rectal Exam Rectal Exam: Normal Exam Perineum: Repair Intact Extremities Exam Extremity Exam: Normal, Full ROM and Warm to Touch Back/Spine/Pelvis Exam Back Exam: Normal Skin Exam Skin Exam: Normal Neurological Exam Neurological Exam: Normal Psychiatric Exam Psychiatric Exam: Normal
--- NOTE | 2023-03-25 10:08 | DSE_ITS ---
Date of service: 03/25/23 Time of Service: 10:08 DS: Diagnosis Discharge Diagnosis (1) Term delivered: Status: Acute Discharge Plan Disposition Patient Disposition: Home Condition: Improving Discharge Details Reason For Visit: term labor Admit Date/Time: 03/23/23 22:28 Admit Provider: Paula Tamayo Attending Provider: Paula Tamayo Primary Care Provider: Orly Ojeda Hospital Course Hospital Course: Spontaneous labor, delivered within 4 hrs of admission, desires discharge to home on PPD. Home Meds and New Rx's Prescriptions: No Action albuterol sulfate [ProAir HFA] 90 mcg/actuation HFA aerosol inhaler 2 puff inhalation Q6H PRN (Reason: shortness of breath or wheezing) Qty: 8.5 0RF Rx Instructions: Substitutions or generic OK; dispense as best filled per insurance... PNV,calcium 30-dokn-rdsoh acid 27 mg iron- 1 mg tablet 1 tab PO DAILY Qty: 90 8RF Rx Instructions: give with food (meal/snack) labetalol 100 mg tablet 100 mg PO BID Qty: 60 3RF Discharge Instructions Additional Instructions: Please keep your 2 and 6 wk appointments, call for any and all concerns Stand Alone Forms: Instructions, Post Vaginal Deliver Activity:: Activity as Tolerated Equipment/Supplies:: No Equipment Needed Diet:: Normal Diet OB:DS Summary Summary Vaginal Delivery Method: Spontaneaous Episiotomy Description: None Laceration Description: Perineal Laceration Extension: Second Degree Contraception Discussed Contraception Discussed: Yes Contraceptive Plan: Not planning to use and Vasectomy, Infant Gender-Baby A: Male weight: 8 lb 3.396 oz Status at Discharge Functional status at discharge: independent ambulation Overall status at discharge: patient is progressing back to baseline Mental Status: mental status grossly normal Speech and Movement: speech and movement normal and speech clear Mood: congruent mood Affect: normal affect Exam Physical Exam Vital signs: Temp Pulse Resp BP Pulse Ox 98.1 F 73 18 119/83 99 03/25/23 07:13 03/25/23 07:13 03/25/23 07:13 03/25/23 07:13 03/25/23 07:13 Vital Signs Reviewed: Yes Constitutional Constitutional: no acute distress and cooperative HEENT Exam HEENT Exam: Normal Neck Exam Neck Exam: Normal Breast Exam Bilateral: Breast Exam: Normal and Soft Respiratory Exam Respiratory Exam: Normal Cardiovascular Exam Cardiovascular Exam: Normal Abdominal Exam Abdomen: Other (soft, nontender) Fundal Exam Fundus: Below Umbilicus and Firm Rectal Exam Rectal Exam: Normal Exam Perineum: Repair Intact Extremities Exam Extremity Exam: Normal, Full ROM and Warm to Touch Back/Spine/Pelvis Exam Back Exam: Normal Skin Exam Skin Exam: Normal Neurological Exam Neurological Exam: Normal Psychiatric Exam Psychiatric Exam: Normal PFSH All Active Problems (Updated 03/25/23 @ 10:07 by Paula Tamayo) History of depression (Acute) Term delivered (Acute) Carpal tunnel syndrome of right wrist (Acute) Adverse reaction to penicillin (Acute) Chronic hypertension (Acute) Body mass index [BMI] 37.0-37.9, adult (Acute) Asthma (Chronic) Mild, Hx Albuterol use as child, with cold weather. New to cold weather, considering PFT/Pulm PRN. Medical History (Updated 03/25/23 @ 10:07 by Paula Tamayo) At risk for diabetes mellitus 2' gestational diabetes, 2019 (Vag delivery February 2020) Family history of ovarian cancer Maternal Grandmother. Mo NEG (and has had regular mammograms). Personal Hx bc pills. [ ] consider earlier baseline mammo History of gestational diabetes mellitus History of gestational hypertension History of depression, currently Hx of Healthy , but high BP noted (no Rx) and gestational DM (+). Vag delivery (induced), March 07, 2020. Tachycardia Uterine contractions Family History Maternal Grandmother Cancer Ovarian Mother Hypertension Social History Smoking/Tobacco Use Status: Never Second Hand Exposure: No Smoking risk assessment performed?: Yes Alcohol Intake: current Alcohol Intake frequency: a few times a month Drug use: Never Substance use type: does not use Details: does not drink ETOH during per patient Adopted: No Caregiver/Support person: No Foster care: No Household members: spouse, family and children Housing: house Number of Children: 1 number of grandchildren: 0 Communication Needs: None Education Level: college Details: Bachelor's Degree Do you need help understanding health information?: Rarely 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 [employer] Pets and animals: Yes (2) Pets and animals: dog(s) Sexually active: Yes Do you think of yourself as: straight/heterosexual Current gender identity: female What is your relationship status?: How often do you talk on the phone with friends or family?: three or more times per week How often do you get together with friends or relatives?: once per week Do you belong to any clubs or organized social groups?: no Panel score (0-1 are the most socially isolated patients): 2 What type of physical activity do you participate in: walking Duration: 15-30 minutes/day Frequency: 3-4 times per week Martha/Latter-Day: None Special martha needs: No Seatbelt use: always Helmet use: Yes Helmet use: always Drive intox or ride w/intox day haul or farm charter bus driver: No Do you feel safe at home: Yes Do you feel safe in your relationship?: Yes Female Reproductive History Menstrual control method: none History History 3 Para 1 Hx # Term Pregnancies 1 Multiple births 0 Hx # Pregnancies 0 Ectopic pregnancies 0 AB induced 0 Hx Number of Living Children 1 AB spontaneous 1 Past Pregnancies Del. Date GA/Weeks # Preg Succ Route Wgt Sex Labor Lgth Anesth esia Location Prov Complic 03/07/22 39 No Yes vaginal 7 lb Male 12 h [facility] Delivery Date: 03/07/22 Last Updated by: Sherron Teran CNM gHTN and GDM diet controlled, IOL at 39 wksKailash DS: Data Vitals/I&O Vitals and I&O: Vital Signs Temperature 98.1 F 03/25/23 07:13 Temperature Source Oral 03/25/23 07:13 Pulse 73 03/25/23 07:13 Pulse Rhythm Regular 03/25/23 07:13 Respiratory Rate 18 03/25/23 07:13 Blood Pressure 119/83 03/25/23 07:13 Blood Pressure Mean 95 03/25/23 07:13 Pulse Oximetry 99 03/25/23 07:13 Oxygen Delivery Method Room Air 03/23/23 23:14 Oxygen Flow Rate 0 03/23/23 23:14 Pain Level 1 03/24/23 05:14 Intake & Output 03/24/23 03/24/23 03/25/23 11:59 23:59 11:59 Intake Total 500 / 500 Output Total 1100 / 1100 Balance -600 / -600 Intake: IV 500 / 500 Output: Urine 800 / 800 Blood 300 / 300 Other: Urine Color Pale Yellow
[2023-03-25] MEDS: Hamamelis Leaf/Glycerin 100 EACH BOX PR (11:29)
[2023-03-25] MEDS: Dibucaine 1% 28 GM TUBE TP (11:30)
== END 2023-03-25 12:00 | disposition home or self-care (01) | DRG 806 ==
PROVIDERS: Admitting Provider Advanced Practice Midwife; PCP Student in an Organized Health Care Education/Training Program; Visit Provider Advanced Practice Midwife
DX: O10.02 Pre-existing essential hypertension complicating childbirth (principal); O99.354 Diseases of the nervous system complicating childbirth; Z37.0 Single live birth; O70.1 Second degree perineal laceration during delivery; O99.52 Diseases of the respiratory system complicating childbirth; Z3A.39 39 weeks gestation of pregnancy; J45.909 Unspecified asthma, uncomplicated; G56.01 Carpal tunnel syndrome, right upper limb
CPT/HCPCS: 85027; 86850; 86900; 86901; J3010; J3490

== ENCOUNTER → 2025-06-14 02:07 | Outpatient (CLI) | payer BC, SELFPAY ==
--- NOTE | 2025-06-14 08:00 | DI.MAMMO_ITS ---
Exam(s) US BREAST RT COMPLETE MG MAMMO DIAGNOSTIC BI EXAM: MAMMO DIAGNOSTIC BI and U/S breast RT complete CLINICAL HISTORY: eval N64.4 MASTODYNIA N64.59 N64.52 NIPPLE DISCHARGE INVERSION RT. TECHNIQUE: Craniocaudal and mediolateral oblique Full Field Digital Mammography views with Computer Aided Diagnosis followed by Tomosynthesis and complete right breast ultrasound. All 4 quadrants of the right breast were evaluated sonographically in addition to the right retroareolar and axillary regions. COMPARISON: This is a baseline examination. There are no priors for comparison. FINDINGS: Mammography/Tomosynthesis: Masses/Architectural Distortion: There are no areas of architectural distortion or suspicious mass is seen. Microcalcifictions: No suspicious pleomorphic-type are seen. Skin Thickening/Nipple Retraction: None. Complete right breast US: Echotexture: Normal appearance of the glandular tissue. Shadowing: No suspicious foci. Cyst: None. Solid lesions: None seen. Ductal dilation: None. IMPRESSION: 1. No evidence of malignancy is noted. 2. Unless there is more urgent need, screening mammography is recommended, as per [place] [employer] guidelines. 3. The findings were discussed with the patient on the date of the examination. BI-RADS Category 1 - Negative Breast Density - Category B - There are scattered areas of fibroglandular density. Breast density Category C or D implies that the patient has dense breast tissue. Dense breast tissue can make it harder to find cancer on a mammogram. Dense breast tissue is also associated with an increased risk of breast cancer. This information about the result of the mammogram report was provided to the patient to raise their awareness. Use this report when you speak with the patient about their risks for breast cancer, which includes their family history. At that time, you may recommend additional screening tests (Ultrasound or MRI) as these tests may add significant information. A negative radiographic report should not delay biopsy if a dominant or clinically suspicious mass is present. Up to ten percent of cancers are not identified on mammography. A negative report may reinforce clinical impression. Adenosis and dense breasts may obscure an underlying neoplasm. False positive reports average 6 to 10%. Patient will receive a letter notifying them of these results.
== END ==
LOC: DI 02:07
PROVIDERS: PCP Student in an Organized Health Care Education/Training Program; Visit Provider Obstetrics & Gynecology
DX: N64.4 Mastodynia (principal); N64.59 Other signs and symptoms in breast; N64.52 Nipple discharge
CPT/HCPCS: 76642; 77062; 77066; G0279